=== PATIENT | male | born 1950 | race Caucasian/White ===

== ENCOUNTER 2025-02-25 07:27 | Inpatient (IN) | payer MEDICARE ==
[~2025-02-25] VITALS: Ht 182.9 cm; Wt 112.0 kg
[2025-02-25 09:59] VITALS: BP 120/81; TEMP 96.8
[2025-02-25 10:32] VITALS: BP 120/81; TEMP 96.8
[2025-02-26] MEDS: OXYCODONE/APAP 5-325 MG TABLET PO PRN (02:03)
[2025-02-26 02:25] VITALS: BP 101/64; TEMP 98.2; O2SAT 96
[2025-02-26] MEDS ORDERED: BISA10SU95 RC (04:11)
[2025-02-26] MEDS ORDERED: TAMS-3 PO (04:11)
[2025-02-26] MEDS ORDERED: POLY15DR17 EACHEYE (04:11)
[2025-02-26] MEDS ORDERED: ACET-3117 PO (04:11)
[2025-02-26] MEDS ORDERED: LEVO25TA9 PO (04:11)
[2025-02-26 07:43] VITALS: BP 128/68; TEMP 97.1; O2SAT 98
[2025-02-26] MEDS ORDERED: WARF-68 PO ×2 (10:12→10:13)
[2025-02-26] MEDS ORDERED: CHOL500062 PO (10:13)
[2025-02-26] MEDS ORDERED: LEVO137T2 PO ×2 (10:15→10:16)
[2025-02-26] MEDS ORDERED: CYAN100T44 PO (10:16)
[2025-02-26] MEDS ORDERED: FOLI0.8C PO (10:17)
[2025-02-26] MEDS ORDERED: FURO40TA5 PO (10:18)
[2025-02-26] MEDS ORDERED: GINGER PO (10:20)
[2025-02-26] MEDS ORDERED: GREEN TEA PO (10:21)
[2025-02-26] MEDS ORDERED: KETO120S5 TP (10:23)
[2025-02-26] MEDS ORDERED: MAGN400C PO (10:23)
[2025-02-26] MEDS ORDERED: FERR-68 PO (10:24)
[2025-02-26] MEDS ORDERED: CICL15CR12 TP (10:26)
[2025-02-26] MEDS ORDERED: OMEP20TA20 PO (10:26)
[2025-02-26] MEDS ORDERED: ZINC220T3 PO (10:27)
[2025-02-26] MEDS ORDERED: [UNRECOGNIZED DRUG - OTHER] PO (10:28)
[2025-02-26] MEDS ORDERED: TURMERIC OTC PO (10:29)
[2025-02-26] MEDS ORDERED: VITA-354 PO (10:30)
[2025-02-26] MEDS ORDERED: THIA100T74 PO (10:31)
[2025-02-26] MEDS ORDERED: SELE200C PO (10:33)
[2025-02-26] MEDS ORDERED: FUROSEMIDE 40 MG TABLET PO PRN (12:00)
[2025-02-26] MEDS ORDERED: HOME MED MISCELLANEOUS XX SCH ×7 (12:00)
[2025-02-26] MEDS ORDERED: CHOLECALCIFEROL 1,000 UNIT TABLET PO SCH (13:00)
[2025-02-26] MEDS ORDERED: OMEPRAZOLE 20 MG PO PRN (13:00)
[2025-02-26] MEDS ORDERED: LEVOTHYROXINE SODIUM 137 MCG TABLET PO SCH (13:00)
[2025-02-26] MEDS: KETOCONAZOLE 2% SHAMPOO 120 ML BOTTLE TP SCH (14:35)
[2025-02-26] MEDS: LEVOTHYROXINE SODIUM 137 MCG TABLET PO SCH (15:16)
[2025-02-26 16:47] VITALS: BP 103/58; TEMP 98; O2SAT 97
[2025-02-26] MEDS: MAGNESIUM OXIDE 400 MG TABLET PO SCH (17:43)
[2025-02-26] MEDS: CYANOCOBALAMIN 1,000 MCG TABLET PO SCH (17:43)
[2025-02-26] MEDS: FERROUS SULFATE 325 MG TABEC PO SCH (17:44)
[2025-02-26] MEDS: THIAMINE HCL 100 MG TABLET PO SCH (17:44)
[2025-02-26] MEDS: ZINC SULFATE 220 MG CAPSULE PO SCH (17:44)
[2025-02-26] MEDS: CHOLECALCIFEROL 1,000 UNIT TABLET PO SCH (17:45)
[2025-02-26] MEDS ORDERED: SELENIUM 200 MCG PO SCH (18:00)
[2025-02-26] MEDS: WARFARIN SODIUM 2 MG TABLET PO SCH (18:04)
[2025-02-26] MEDS: VITAMIN E 400 UNITS CAPSULE PO SCH (19:05)
[2025-02-26 20:22] VITALS: BP 161/87; TEMP 97.7; O2SAT 99
[2025-02-26] MEDS: TAMSULOSIN HCL 0.4 MG CAP.SR.24H PO SCH (20:35)
[2025-02-27 05:06] VITALS: BP 118/76; TEMP 97.6; O2SAT 98
[2025-02-27] MEDS: LEVOTHYROXINE SODIUM 137 MCG TABLET PO SCH (06:20)
[2025-02-27 07:30] LABS: PLATELET COUNT (AUTO) 173 K/uL (152-348); RED BLOOD CELL COUNT(AUTO) 3.41 MIL/uL (4.06-5.63); RED CELL DISTRIBUTION WIDTH 14.3 % (12.1-16.2); WHITE BLOOD COUNT (AUTO) 6.2 K/uL (3.6-10.2)
[2025-02-27 07:38] LABS: CREATININE 0.5 mg/dL (0.6-1.3); SODIUM SERUM 135 mmol/L (136-145); UREA NITROGEN, BLOOD 12 mg/dL (7-18)
[2025-02-27 08:00] VITALS: BP 104/70; TEMP 97.8; O2SAT 98
[2025-02-27] MEDS: CICLOPIROX 0.77% CREAM 30 GM TUBE TP SCH (08:39)
[2025-02-27 08:53] LABS: NEUTROPHILS % (MANUAL) 76 % (42-75)
[2025-02-27 08:54] LABS: EOSINOPHILS % (MANUAL) 3 % (0-8); LYMPHOCYTES % (MANUAL) 10 % (20-40); MONOCYTES % (MANUAL) 11 % (2-10); PLATELET ESTIMATE ADEQUATE
[2025-02-27] MEDS ORDERED: ENOXAPARIN SODIUM 60 MG/0.6 ML DISP.SYRIN SQ SCH (13:00)
[2025-02-27] MEDS: ENOXAPARIN SODIUM 120 MG/0.8 ML SYRINGE SQ SCH (14:23)
[2025-02-27 16:00] VITALS: BP 107/66; TEMP 98; O2SAT 98
[2025-02-27] MEDS: WARFARIN SODIUM 2 MG TABLET PO SCH (17:51)
[2025-02-27 20:24] VITALS: BP 91/49; TEMP 97.4; O2SAT 98
[2025-02-28 05:52] VITALS: BP 95/59; TEMP 98.2; O2SAT 96
[2025-02-28 08:00] VITALS: BP 100/60; TEMP 97.9; O2SAT 98
[2025-02-28 16:00] VITALS: BP 110/64; TEMP 98; O2SAT 99
[2025-02-28 20:07] VITALS: BP 91/43; TEMP 97.7; O2SAT 98
[2025-03-01 05:02] VITALS: BP 99/61; TEMP 98.2; O2SAT 97
[2025-03-01 08:00] VITALS: BP 98/60; TEMP 97.9; O2SAT 96
[2025-03-01 16:00] VITALS: BP 108/62; TEMP 98.1; O2SAT 98
[2025-03-01] MEDS: WARFARIN SODIUM 5 MG TABLET PO ONE (17:10)
[2025-03-01] MEDS: FOLIC ACID 800 MCG PO SCH (17:13)
[2025-03-01] MEDS: [UNRECOGNIZED DRUG - OTHER] PO SCH (17:13)
[2025-03-01] MEDS: SELENIUM 200 MCG PO SCH (17:13)
[2025-03-01] MEDS: [UNRECOGNIZED DRUG - OTHER] PO SCH (17:13)
[2025-03-01] MEDS ORDERED: SENNOSIDES 1 TABLET PO PRN (18:00)
[2025-03-01 20:30] VITALS: O2SAT 97
[2025-03-01 21:15] VITALS: BP 92/58; TEMP 97.9; O2SAT 97
[2025-03-02 07:49] VITALS: BP 99/58; TEMP 97.5; O2SAT 97
[2025-03-02] MEDS: ACETAMINOPHEN 325 MG TABLET PO PRN (09:31)
[2025-03-02 16:00] VITALS: BP 102/72; TEMP 97.2; O2SAT 98
[2025-03-02] MEDS: WARFARIN SODIUM 2 MG TABLET PO SCH (17:37)
[2025-03-02 20:00] VITALS: BP 108/64; TEMP 97.8; O2SAT 98
[2025-03-03] MEDS: LEVOTHYROXINE SODIUM 137 MCG TABLET PO SCH (06:02)
[2025-03-03 07:00] VITALS: BP 91/56; TEMP 98.3; O2SAT 96
[2025-03-03 07:59] VITALS: BP 90/51; TEMP 98; O2SAT 96
[2025-03-03 16:00] VITALS: BP 97/51; TEMP 98.1; O2SAT 96
[2025-03-03 20:12] VITALS: BP 114/65; TEMP 98; O2SAT 98
[2025-03-04 05:40] VITALS: BP 102/72; TEMP 98.1; O2SAT 97
[2025-03-04 08:21] LABS: PLATELET COUNT (AUTO) 116 K/uL (152-348); RED BLOOD CELL COUNT(AUTO) 3.22 MIL/uL (4.06-5.63); RED CELL DISTRIBUTION WIDTH 14.3 % (12.1-16.2); WHITE BLOOD COUNT (AUTO) 6.5 K/uL (3.6-10.2)
[2025-03-04 08:29] LABS: CREATININE 0.5 mg/dL (0.6-1.3); SODIUM SERUM 140 mmol/L (136-145); UREA NITROGEN, BLOOD 11 mg/dL (7-18)
[2025-03-04 16:32] VITALS: BP 106/58; TEMP 98.6; O2SAT 96
[2025-03-04] MEDS: WARFARIN SODIUM 5 MG TABLET PO ONE (17:32)
[2025-03-04 19:55] VITALS: BP 102/51; TEMP 97.6; O2SAT 98
[2025-03-05 06:38] VITALS: BP 99/68; TEMP 97.5; O2SAT 98
[2025-03-05 08:00] VITALS: BP 96/59; TEMP 97.7; O2SAT 98
[2025-03-05 16:23] VITALS: BP 106/65; TEMP 97.6; O2SAT 97
[2025-03-05] MEDS: WARFARIN SODIUM 5 MG TABLET PO ONE (17:57)
[2025-03-05 19:40] VITALS: BP 99/56; TEMP 97.7; O2SAT 98
[2025-03-06 05:46] VITALS: BP 109/68; TEMP 97.9; O2SAT 96
[2025-03-06 07:41] VITALS: BP 93/54; TEMP 97.7; O2SAT 97
[2025-03-06 07:49] LABS: PLATELET COUNT (AUTO) 233 K/uL (152-348); RED BLOOD CELL COUNT(AUTO) 3.12 MIL/uL (4.06-5.63); RED CELL DISTRIBUTION WIDTH 14.3 % (12.1-16.2); WHITE BLOOD COUNT (AUTO) 6.7 K/uL (3.6-10.2)
[2025-03-06 10:57] VITALS: BP 100/50; TEMP 97.6; O2SAT 97
[2025-03-06 11:07] LABS: METHYLMALONIC ACID 98.0 nmol/L (0-378)
[2025-03-06] MEDS: WARFARIN SODIUM 5 MG TABLET PO ONE (16:07)
[2025-03-06 16:31] VITALS: BP 103/55; TEMP 97.7; O2SAT 97
[2025-03-06] MEDS ORDERED: WARFARIN SODIUM 2 MG TABLET PO SCH (17:00)
[2025-03-07] MEDS ORDERED: WARFARIN SODIUM 2 MG TABLET PO SCH (17:00)
[2025-03-12] MEDS ORDERED: WARFARIN SODIUM 2 MG TABLET PO SCH (17:00)
== END 2025-03-06 17:30 | disposition home health service (06) | DRG 948 ==
PROVIDERS: ADMIT Physical Medicine & Rehabilitation Pain Medicine; ATTEND Physical Medicine & Rehabilitation Pain Medicine
DX: R53.1 Weakness (principal); D68.61 Antiphospholipid syndrome; Z98.890 Other specified postprocedural states; D64.9 Anemia, unspecified; E03.9 Hypothyroidism, unspecified; E66.9 Obesity, unspecified; Z68.33 Body mass index [BMI] 33.0-33.9, adult; N40.0 Benign prostatic hyperplasia without lower urinary tract symptoms; Z96.652 Presence of left artificial knee joint; G47.33 Obstructive sleep apnea (adult) (pediatric); D63.8 Anemia in other chronic diseases classified elsewhere; Z48.89 Encounter for other specified surgical aftercare; Z86.711 Personal history of pulmonary embolism; Z86.718 Personal history of other venous thrombosis and embolism; Z79.01 Long term (current) use of anticoagulants
CPT/HCPCS: 36415; 70030-TC; 71045; 83735; 83921; 84100; 84443; 85025; 85610; 85730; 97535-GO-CO; A4663; J1650; J3590